=== PATIENT | female | born 1990 | race Caucasian/White ===

== ENCOUNTER 2019-06-08 10:30 | Inpatient (IN) | payer OTHER ==
[2019-06-08] MEDS ORDERED: ACETAMINOPHEN TAB 325 MG TAB PO STA (11:27)
--- NOTE | 2019-06-08 11:31 | ED ---
General Adult HPI - General Chief complaint: Skin/Abscess/Foreign Body Stated complaint: Cellulitis Time Seen by Provider: 06/08/19 11:15 Source: patient, family, RN notes reviewed Mode of arrival: wheelchair Limitations: physical limitation - History of Present Illness Initial comments: Patient is a very pleasant 28-year-old female presenting to the emergency department with family with concerns for redness of the abdomen. Onset of symptoms was 3 or 4 days ago. Patient has been having some discomfort in her family however patient denies this. No fevers at home. No history of similar symptoms previous. Patient does have history of surgical procedure approximately 10 years ago to help her with bowel movements. Patient does have openings through her umbilicus as well as right lower abdomen. Patient has not had a bowel movement in the past 3 days despite using fluid through her like she normally does. Family did try soapsuds yesterday without bowel movement. Patient does have difficulty threading history and family provides majority of history. Patient states she has been tolerating oral intake normally however family does not believe this is true - Related Data Home Medications Medication Instructions Recorded Confirmed Cholecalciferol [Vitamin D3 (25 1,000 unit PO DAILY 06/08/19 06/08/19 Mcg = 1000 Iu)] Cranberry Fruit Extract [Cranberry] 200 mg PO Q48H 06/08/19 06/08/19 Loratadine [Claritin] 10 mg PO DAILY 06/08/19 06/08/19 Oxybutynin Chloride [Ditropan XL] 5 mg PO DAILY 06/08/19 06/08/19 Sennosides [Senna] 8.6 mg PO Q48H 06/08/19 06/08/19 Allergies Allergy/AdvReac Type Severity Reaction Status Date / Time erythromycin base Allergy Anaphylaxis Verified 06/08/19 11:19 Latex, Natural Rubber Allergy Anaphylaxis Verified 06/08/19 11:19 loracarbef [From Lorabid] Allergy Rash/Hives Verified 06/08/19 11:19 Review of Systems ROS Statement: Those systems with pertinent positive or pertinent negative responses have been documented in the HPI. ROS Other: All systems not noted in ROS Statement are negative. Constitutional: Denies: fever, chills Eyes: Denies: eye pain ENT: Denies: ear pain Respiratory: Denies: dyspnea Cardiovascular: Denies: chest pain Endocrine: Denies: fatigue Gastrointestinal: Reports: as per HPI Genitourinary: Denies: dysuria Musculoskeletal: Denies: back pain Skin: Reports: as per HPI, rash Neurological: Denies: weakness Past Medical History Additional Past Medical History / Comment(s): Bor with spina bifida, RN POOL shunt, MRSA left knee History of Any Multi-Drug Resistant Organisms: MRSA Date of last positivie culture/infection: 2015 Additional Past Surgical History / Comment(s): left foot surgery, left leg surgery, Past Psychological History: Depression Smoking Status: Never smoker Past Alcohol Use History: None Reported Past Drug Use History: None Reported General Exam Limitations: physical limitation General appearance: alert, in no apparent distress, obese Head exam: Present: atraumatic Eye exam: Present: normal appearance, PERRL ENT exam: Present: normal oropharynx Neck exam: Present: normal inspection Respiratory exam: Present: normal lung sounds bilaterally Cardiovascular Exam: Present: tachycardia GI/Abdominal exam: Present: soft. Absent: distended, tenderness Extremities exam: Present: normal inspection Neurological exam: Present: alert Psychiatric exam: Present: normal affect, normal mood Skin exam: Present: erythema (Lower one third of abdomen with erythema consistent with cellulitis. This is across the majority of the lower abdomen.) Course Vital Signs 06/08/19 11:01 Temperature 99.8 F H Pulse Rate 131 H Respiratory 24 Rate Blood Pressure 111/64 O2 Sat by Pulse 98 Oximetry Medical Decision Making - Medical Decision Making Patient reevaluated and resting comfortably in bed. Patient remains tachycardic. Patient and family updated on results and plan. Case was discussed in detail with Dr. Lugo, covering for Dr. Huang, who will admit. Patient does meet criteria for sepsis diagnosed at 1336. Blood culture and lactic acid have been ordered. Fluid bolus has been ordered. IV antibiotics will be ordered. - Lab Data Result diagrams: 06/08/19 12:13 06/08/19 12:13 Lab Results 06/08/19 06/08/19 06/08/19 Range/Units 12:13 12:13 12:13 WBC 16.2 H (3.8-10.6) k/uL RBC 4.58 (3.80-5.40) m/uL Hgb 14.3 (11.4-16.0) gm/dL Hct 43.5 (34.0-46.0) % MCV 95.1 (80.0-100.0) fL MCH 31.3 (25.0-35.0) pg MCHC 32.9 (31.0-37.0) g/dL RDW 15.8 H (11.5-15.5) % Plt Count 246 (150-450) k/uL Neutrophils % 87 % Lymphocytes % 7 % Monocytes % 4 % Eosinophils % 0 % Basophils % 0 % Neutrophils # 14.0 H (1.3-7.7) k/uL Lymphocytes # 1.1 (1.0-4.8) k/uL Monocytes # 0.7 (0-1.0) k/uL Eosinophils # 0.0 (0-0.7) k/uL Basophils # 0.0 (0-0.2) k/uL PT (9.0-12.0) sec INR (<1.2) APTT (22.0-30.0) sec Sodium 142 (137-145) mmol/L Potassium 4.0 (3.5-5.1) mmol/L Chloride 108 H (98-107) mmol/L Carbon Dioxide 23 (22-30) mmol/L Anion Gap 11 mmol/L BUN 9 (7-17) mg/dL Creatinine 0.51 L (0.52-1.04) mg/dL Est GFR (CKD-EPI)AfAm >90 (>60 ml/min/1.73 sqM) Est GFR (CKD-EPI)NonAf >90 (>60 ml/min/1.73 sqM) Glucose 136 H (74-99) mg/dL Plasma Lactic Acid Simba 2.3 H* (0.7-2.0) mmol/L Calcium 9.8 (8.4-10.2) mg/dL Total Bilirubin 2.0 H (0.2-1.3) mg/dL AST 28 (14-36) U/L ALT 42 (9-52) U/L Alkaline Phosphatase 115 (38-126) U/L Total Protein 7.1 (6.3-8.2) g/dL Albumin 3.4 L (3.5-5.0) g/dL 06/08/19 Range/Units 12:13 WBC (3.8-10.6) k/uL RBC (3.80-5.40) m/uL Hgb (11.4-16.0) gm/dL Hct (34.0-46.0) % MCV (80.0-100.0) fL MCH (25.0-35.0) pg MCHC (31.0-37.0) g/dL RDW (11.5-15.5) % Plt Count (150-450) k/uL Neutrophils % % Lymphocytes % % Monocytes % % Eosinophils % % Basophils % % Neutrophils # (1.3-7.7) k/uL Lymphocytes # (1.0-4.8) k/uL Monocytes # (0-1.0) k/uL Eosinophils # (0-0.7) k/uL Basophils # (0-0.2) k/uL PT 11.4 (9.0-12.0) sec INR 1.1 (<1.2) APTT 23.0 (22.0-30.0) sec Sodium (137-145) mmol/L Potassium (3.5-5.1) mmol/L Chloride (98-107) mmol/L Carbon Dioxide (22-30) mmol/L Anion Gap mmol/L BUN (7-17) mg/dL Creatinine (0.52-1.04) mg/dL Est GFR (CKD-EPI)AfAm (>60 ml/min/1.73 sqM) Est GFR (CKD-EPI)NonAf (>60 ml/min/1.73 sqM) Glucose (74-99) mg/dL Plasma Lactic Acid Simba (0.7-2.0) mmol/L Calcium (8.4-10.2) mg/dL Total Bilirubin (0.2-1.3) mg/dL AST (14-36) U/L ALT (9-52) U/L Alkaline Phosphatase (38-126) U/L Total Protein (6.3-8.2) g/dL Albumin (3.5-5.0) g/dL - Radiology Data Radiology results: image reviewed (Abdominal x-rays show nonobstructive pattern. Chest x-ray is suboptimal study, possible atelectasis or atypical pneumonia.) Critical Care Time Critical Care Time: Yes Total Critical Care Time: 31 Disposition Clinical Impression: Severe sepsis Disposition: ADMITTED IP TO THIS HOSP Is patient prescribed a controlled substance at d/c from ED?: No Referrals: Lalo Huang MD [Primary Care Provider] - 1-2 days Decision Time: 13:36
[2019-06-08] MEDS: SODIUM CHLORIDE 0.9% 500 ML 500 ML IV SCH ×2 (12:06→13:43)
[2019-06-08 12:35] LABS: Basophils % (A) 0 %; Eosinophils % (A) 0 %; HCT 43.5 % (34.0-46.0); HGB 14.3 gm/dL (11.4-16.0); Lymphocytes # (A) 1.1 k/uL (1.0-4.8); Lymphocytes % (A) 7 %; MCH 31.3 pg (25.0-35.0); MCHC 32.9 g/dL (31.0-37.0); MCV 95.1 fL (80.0-100.0); Mean Platelet Volume 7.4; Monocytes # (A) 0.7 k/uL (0-1.0); Monocytes % (A) 4 %; Neutrophils % (A) 87 %; Platelet Count 246 k/uL (150-450); RBC 4.58 m/uL (3.80-5.40); RDW 15.8 % (11.5-15.5); WBC 16.2 k/uL (3.8-10.6)
[2019-06-08 12:42] LABS: INR 1.1 (<1.2); Prothrombin Time 11.4 sec (9.0-12.0)
[2019-06-08 12:45] LABS: ALT 42 U/L (9-52); AST 28 U/L (14-36); African American GFR (CKD) >90 (>60 ml/min/1.73 sqM); Albumin 3.4 g/dL (3.5-5.0); Alkaline Phosphatase 115 U/L (38-126); Anion Gap 11 mmol/L; Blood Urea Nitrogen 9 mg/dL (7-17); Calcium 9.8 mg/dL (8.4-10.2); Carbon Dioxide 23 mmol/L (22-30); Chloride 108 mmol/L (98-107); Glucose 136 mg/dL (74-99); Sodium 142 mmol/L (137-145); Total Protein 7.1 g/dL (6.3-8.2)
--- NOTE | 2019-06-08 13:13 | XR ---
EXAMINATION TYPE: XR chest 2V DATE OF EXAM: 06/08/2019 COMPARISON: 12/16/2008 HISTORY: Fever TECHNIQUE: Frontal and lateral views of the chest are obtained. FINDINGS: Hazy linear perihilar opacities are seen with slight obscuration the central retrocardiac airspace. Copious overlying soft tissues are seen. Cardia mediastinal silhouette is mildly enlarged a s seen on the prior. No sizable pneumothorax or pleural effusion. No acute osseous pathology. Shunt t ubing courses along the lateral right chest and neck. IMPRESSION: Exam is suboptimal secondary to patient body habitus. Central perihilar opacities could relate to atelectasis or atypical pneumonia.
--- NOTE | 2019-06-08 13:14 | XR ---
EXAMINATION TYPE: XR abdomen 1V DATE OF EXAM: 06/08/2019 1:01 PM CLINICAL HISTORY: Abdominal pain and known cellulitis TECHNIQUE: Single supine KUB image of the abdomen is obtained. COMPARISON: None. FINDINGS: Shunt tubing courses along the lateral right chest. Dysraphism is seen of the lumbosacral j unction as well as a reverse S-shaped scoliotic curvature of the thoracal lumbar spine. No dilated la rge or small bowel. Evaluation of pneumoperitoneum is limited given the supine view only however no g ross evidence of pneumoperitoneum is seen. 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 IMPRESSION: Nonobstructive bowel gas pattern.
[2019-06-08] MEDS ORDERED: SODIUM CHLORIDE 0.9% 1,000 ML IV STA ×2 (13:34)
[2019-06-08] MEDS ORDERED: ACETAMINOPHEN TAB 325 MG TAB PO PRN (13:37)
[2019-06-08] MEDS ORDERED: NALOXONE 0.4 MG/ML 1 ML VIAL IV PRN (13:37)
[2019-06-08] MEDS ORDERED: LEVOFLOXACIN 750MG-D5W PMX 750 MG in DEXTROSE/WATER 1 150ML.BAG IVPB STA (13:47)
[2019-06-08] MEDS ORDERED: LEVOFLOXACIN 250MG-D5W PMX 250 MG in DEXTROSE/WATER 1 50ML.BAG IVPB STA (13:47)
[2019-06-08] MEDS ORDERED: CLINDAMYCIN 600 MG in DEXTROSE 5% IN WATER 50 ML IVPB ONE ×2 (14:00)
[2019-06-08 14:34] LABS: Amorphous Sediment,Urine Few /hpf; Appearance,Urine Cloudy (Clear); Bacteria,Urine Many /hpf; Bilirubin,Urine 1+ (Negative); Blood,Urine Negative (Negative); Color,Urine Dark Yellow; Glucose,Urine (UA) 1+ (Negative); Ketones,Urine Negative (Negative); Leukocyte Esterase,Urine Moderate (Negative); Mucus,Urine Many /hpf; Nitrite,Urine Positive (Negative); Protein,Urine 1+ (Negative); Specific Gravity,Urine 1.019 (1.001-1.035); Squamous Epithelial Cell,Urine <1 /hpf (0-4); WBC,Urine 41 /hpf (0-5)
[2019-06-08] MEDS: SODIUM CHLORIDE 0.9% 1,000 ML IV SCH (16:31)
[2019-06-08 20:32] LABS: Glucose,Whole Blood 133 mg/dL (75-99)
[2019-06-08] MEDS ORDERED: SENNOSIDES 8.6 MG TAB PO SCH (21:00)
[2019-06-08] MEDS: CLINDAMYCIN 600 MG in DEXTROSE 5% IN WATER 50 ML IVPB SCH ×2 (21:05)
--- NOTE | 2019-06-08 23:59 | P.HPIM ---
History of Present Illness H&P Date: 06/08/19 Chief Complaint: Abdominal pain History of presenting complaint: This is a pleasant 28-year-old patient who follows Dr. Huang. 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 Patient is a limited historian. As per the history obtained from the ER and the nurse that patient has to openings in the abdominal wall. One unit of the umbilicus. There are patient makes urine. Also an opening in the right lower quadrant where a suction apparatus is attached to update the stool. Patient is brought in for some distention of the abdomen. Not had a bowel movement for about 3 days. Does not nausea vomiting. No obvious fever and chills. There was slight redness of the abdominal wall. Patient's family is currently not present. Admitting review of systems Difficult to obtain because of patient's mental retardation. 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 Lives some other. Does use a wheelchair to get about. Physical examination: VITAL SIGNS: 99.8, 131, 24, 111/64, 98% room air GENERAL: BMI 43.4, short, sitting up not in distress. EYES: Pupils equal. Conjunctiva normal. HEENT: External appearance of nose and ears normal, oral cavity grossly normal. NECK: JVD not raised; masses not palpable. HEART: First and second heart sounds are normal; no edema. LUNGS: Respiratory rate normal; clear to auscultation. ABDOMEN: Soft, distended, opening just below the umbilicus with the urine coming out. Another opening in the right lower quadrant. . PSYCH: Patient's able to answer some questions but difficult to followl. NEUROLOGICAL: Cranial nerves grossly intact; no facial asymmetry, weakness in both lower extremity.. LYMPHATICS: No lymph nodes palpable in the axilla and neck Investigations, reviewed in the clinical context: White count 16.2, hemoglobin 14.3, platelets 246, potassium 4.0, creatinine 0.51, lactic acid 2.3 EKG tracing personally reviewed by me shows nonspecific T-wave changes Abdominal x-ray shows nonspecific gas pattern Chest x-ray film poor penetration, personally reviewed by me UA positive for leukoesterase WBC Assessment: -This is a patient is at a prior abdominal procedure has a opening in the right lower quadrant 2 with a suction machine she does attached for his bowel movement. Has not had a bowel movement for 3 days. Abdomen slightly distended. Though minimal tenderness. 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 Family Eliseo in the apparatus for stool suctioning. Meantime will get a consultation with general surgery. We'll also add ceftriaxone and clindamycin.. Urine cultures pending. 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, MRSA left knee History of Any Multi-Drug Resistant Organisms: MRSA Date of last positivie culture/infection: 2015 MDRO Source:: wound Past Surgical History: Bladder Surgery, Bowel Resection Additional Past Surgical History / Comment(s): left foot surgery, left leg surgery, mitrofanoff procedure, osullivan Past Anesthesia/Blood Transfusion Reactions: No Reported Reaction Past Psychological History: Depression Smoking Status: Never smoker Past Alcohol Use History: None Reported Past Drug Use History: None Reported - Past Family History Mother Family Medical History: Diabetes Mellitus, Hyperlipidemia, Hypertension Father History Unknown: Yes Medications and Allergies Home Medications Medication Instructions Recorded Confirmed Type Cholecalciferol [Vitamin D3 (25 1,000 unit PO DAILY 06/08/19 06/08/19 History Mcg = 1000 Iu)] Cranberry Fruit Extract [Cranberry] 200 mg PO Q48H 06/08/19 06/08/19 History Loratadine [Claritin] 10 mg PO DAILY 06/08/19 06/08/19 History Oxybutynin Chloride [Ditropan XL] 5 mg PO DAILY 06/08/19 06/08/19 History Sennosides [Senna] 8.6 mg PO Q48H 06/08/19 06/08/19 History Allergies Allergy/AdvReac Type Severity Reaction Status Date / Time erythromycin base Allergy Anaphylaxis Verified 06/08/19 11:19 Latex, Natural Rubber Allergy Anaphylaxis Verified 06/08/19 11:19 loracarbef [From Lorabid] Allergy Rash/Hives Verified 06/08/19 11:19 Physical Exam Vitals: Vital Signs Temp Pulse Pulse Resp BP BP Pulse Ox 06/08/19 17:15 98.4 F 116 H 114/63 95 06/08/19 16:39 98.1 F 128 H 18 113/63 98 06/08/19 15:00 98.8 F 130 H 22 124/77 96 06/08/19 11:01 99.8 F H 131 H 24 111/64 98 Intake and Output 06/08/19 06/08/19 06/09/19 14:59 22:59 06:59 Intake Total 230 Balance 230 Intake: Intake, IV Titration 50 Amount Clindamycin 600 mg In 50 Dextrose 5% in Water 50 ml @ 50 mls/hr IVPB ONCE ONE Rx#:[id number] Oral 180 Other: Voiding Method Self-Catheterization Weight 97.522 kg Results CBC & Chem 7: 06/08/19 12:13 06/08/19 12:13 Labs: Abnormal Lab Results - Last 24 Hours (Table) 06/08/19 06/08/19 06/08/19 Range/Units 12:13 12:13 12:13 WBC 16.2 H (3.8-10.6) k/uL RDW 15.8 H (11.5-15.5) % Neutrophils # 14.0 H (1.3-7.7) k/uL Chloride 108 H (98-107) mmol/L Creatinine 0.51 L (0.52-1.04) mg/dL Glucose 136 H (74-99) mg/dL POC Glucose (mg/dL) (75-99) mg/dL Plasma Lactic Acid Simba 2.3 H* (0.7-2.0) mmol/L Total Bilirubin 2.0 H (0.2-1.3) mg/dL Albumin 3.4 L (3.5-5.0) g/dL Urine Appearance (Clear) Urine Protein (Negative) Urine Glucose (UA) (Negative) Urine Nitrite (Negative) Urine Bilirubin (Negative) Ur Leukocyte Esterase (Negative) Urine WBC (0-5) /hpf Amorphous Sediment (None) /hpf Urine Bacteria (None) /hpf Urine Mucus (None) /hpf 06/08/19 06/08/19 Range/Units 14:00 20:30 WBC (3.8-10.6) k/uL RDW (11.5-15.5) % Neutrophils # (1.3-7.7) k/uL Chloride (98-107) mmol/L Creatinine (0.52-1.04) mg/dL Glucose (74-99) mg/dL POC Glucose (mg/dL) 133 H (75-99) mg/dL Plasma Lactic Acid Simba (0.7-2.0) mmol/L Total Bilirubin (0.2-1.3) mg/dL Albumin (3.5-5.0) g/dL Urine Appearance Cloudy H (Clear) Urine Protein 1+ H (Negative) Urine Glucose (UA) 1+ H (Negative) Urine Nitrite Positive H (Negative) Urine Bilirubin 1+ H (Negative) Ur Leukocyte Esterase Moderate H (Negative) Urine WBC 41 H (0-5) /hpf Amorphous Sediment Few H (None) /hpf Urine Bacteria Many H (None) /hpf Urine Mucus Many H (None) /hpf Microbiology - Last 24 Hours (Table) 06/08/19 14:00 Urine Culture - Preliminary Urine,Voided Thrombosis Risk Factor Assmnt - Choose All That Apply Any of the Below Risk Factors Present?: No Other Risk Factors: No Thrombosis Risk Factor Assessment Level: Very Low Risk
[2019-06-09] MEDS: SODIUM CHLORIDE 0.9% 1,000 ML IV SCH ×3 (00:49→17:02)
[2019-06-09] MEDS: CLINDAMYCIN 600 MG in DEXTROSE 5% IN WATER 50 ML IVPB SCH ×6 (03:03→17:03)
[2019-06-09 03:10] VITALS: RESP 20
[2019-06-09 06:15] LABS: Glucose,Whole Blood 117 mg/dL (75-99)
[2019-06-09 06:46] LABS: Basophils % (A) 0 %; Eosinophils % (A) 0 %; HCT 36.5 % (34.0-46.0); HGB 11.6 gm/dL (11.4-16.0); Lymphocytes # (A) 1.3 k/uL (1.0-4.8); Lymphocytes % (A) 10 %; MCH 29.8 pg (25.0-35.0); MCHC 31.8 g/dL (31.0-37.0); MCV 93.7 fL (80.0-100.0); Mean Platelet Volume 7.1; Monocytes # (A) 0.5 k/uL (0-1.0); Monocytes % (A) 4 %; Neutrophils # (A) 10.8 k/uL (1.3-7.7); Neutrophils % (A) 83 %; Platelet Count 222 k/uL (150-450); RDW 14.6 % (11.5-15.5); WBC 13.1 k/uL (3.8-10.6)
[2019-06-09 06:56] LABS: ALT 36 U/L (9-52); AST 14 U/L (14-36); African American GFR (CKD) >90 (>60 ml/min/1.73 sqM); Albumin 2.6 g/dL (3.5-5.0); Alkaline Phosphatase 109 U/L (38-126); Anion Gap 8 mmol/L; Blood Urea Nitrogen 9 mg/dL (7-17); Calcium 8.6 mg/dL (8.4-10.2); Carbon Dioxide 19 mmol/L (22-30); Chloride 114 mmol/L (98-107); Glucose 120 mg/dL (74-99); Potassium 3.4 mmol/L (3.5-5.1); Sodium 141 mmol/L (137-145); Total Bilirubin 1.1 mg/dL (0.2-1.3); Total Protein 5.7 g/dL (6.3-8.2)
[2019-06-09] MEDS ORDERED: LORATADINE 10 MG TAB PO SCH (09:00)
[2019-06-09] MEDS ORDERED: ENOXAPARIN 40 MG/0.4 ML SYRINGE SQ SCH (09:00)
[2019-06-09] MEDS ORDERED: OXYBUTYNIN XL 5 MG TAB.ER.24 PO SCH (09:00)
[2019-06-09] MEDS ORDERED: CHOLECALCIFEROL 1,000 UNIT TAB PO SCH (09:00)
[2019-06-09] MEDS ORDERED: IOPAMIDOL-300 CONTRAST 30 ML VIAL (ORAL USE) PO PRN (09:23)
--- NOTE | 2019-06-09 11:26 | P.GSCN ---
History of Present Illness Consult date: 06/09/19 History of present illness: The patient is a 28-year-old female, myelomeningocele, wheelchair bound who was brought to the emergency room by her parents because of abdominal distention and pain and no bowel movement for 3 days. 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 She has a continent ostomy. The patient and the nursing staff have been unable to successfully catheterize her stoma. She normally does this with a 14-Hungarian coud-tip catheter at home. She is incontinent at this point in time. She has the classic posture and obesity. We see with wheelchair bound myelomeningocele patients. 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, MRSA left knee History of Any Multi-Drug Resistant Organisms: MRSA Year Discovered:: 2015 MDRO Source:: wound Past Surgical History: Bladder Surgery, Bowel Resection Additional Past Surgical History / Comment(s): left foot surgery, left leg surgery, mitrofanoff procedure, osullivan Past Anesthesia/Blood Transfusion Reactions: No Reported Reaction Past Psychological History: Depression Smoking Status: Never smoker Past Alcohol Use History: None Reported Past Drug Use History: None Reported - Past Family History Mother Family Medical History: Diabetes Mellitus, Hyperlipidemia, Hypertension Father History Unknown: Yes Medications and Allergies Home Medications Medication Instructions Recorded Confirmed Type Cholecalciferol [Vitamin D3 (25 1,000 unit PO DAILY 06/08/19 06/08/19 History Mcg = 1000 Iu)] Cranberry Fruit Extract [Cranberry] 200 mg PO Q48H 06/08/19 06/08/19 History Loratadine [Claritin] 10 mg PO DAILY 06/08/19 06/08/19 History Oxybutynin Chloride [Ditropan XL] 5 mg PO DAILY 06/08/19 06/08/19 History Sennosides [Senna] 8.6 mg PO Q48H 06/08/19 06/08/19 History Allergies Allergy/AdvReac Type Severity Reaction Status Date / Time erythromycin base Allergy Anaphylaxis Verified 06/08/19 11:19 Latex, Natural Rubber Allergy Anaphylaxis Verified 06/08/19 11:19 loracarbef [From Lorabid] Allergy Rash/Hives Verified 06/08/19 11:19 Surgical - Exam Vital Signs Temp Pulse Resp BP Pulse Ox 99.8 F H 131 H 24 111/64 98 06/08/19 11:01 06/08/19 11:01 06/08/19 11:01 06/08/19 11:01 06/08/19 11:01 - General well developed, well nourished, no distress - Eyes PERRL - ENT no hearing loss - Respiratory normal expansion, normal respiratory effort - Cardiovascular Rhythm: regular - Abdomen Abdomen is protuberant. There is a opening in the umbilicus where she drained urine. There is a right lower quadrant opening where she has bowel movement. There is erythema in the right lower quadrant. She is tender in the right lower quadrant. There is some abdominal distention. - Psychiatric oriented to person, oriented to place Results - Labs 06/09/19 06:12 06/09/19 06:12 Abnormal Lab Results - Last 24 Hours (Table) 06/08/19 06/08/19 06/08/19 Range/Units 12:13 12:13 12:13 WBC 16.2 H (3.8-10.6) k/uL RDW 15.8 H (11.5-15.5) % Neutrophils # 14.0 H (1.3-7.7) k/uL Potassium (3.5-5.1) mmol/L Chloride 108 H (98-107) mmol/L Carbon Dioxide (22-30) mmol/L Creatinine 0.51 L (0.52-1.04) mg/dL Glucose 136 H (74-99) mg/dL POC Glucose (mg/dL) (75-99) mg/dL Plasma Lactic Acid Simba 2.3 H* (0.7-2.0) mmol/L Total Bilirubin 2.0 H (0.2-1.3) mg/dL Total Protein (6.3-8.2) g/dL Albumin 3.4 L (3.5-5.0) g/dL Urine Appearance (Clear) Urine Protein (Negative) Urine Glucose (UA) (Negative) Urine Nitrite (Negative) Urine Bilirubin (Negative) Ur Leukocyte Esterase (Negative) Urine WBC (0-5) /hpf Amorphous Sediment (None) /hpf Urine Bacteria (None) /hpf Urine Mucus (None) /hpf 06/08/19 06/08/19 06/09/19 Range/Units 14:00 20:30 06:12 WBC 13.1 H (3.8-10.6) k/uL RDW (11.5-15.5) % Neutrophils # 10.8 H (1.3-7.7) k/uL Potassium (3.5-5.1) mmol/L Chloride (98-107) mmol/L Carbon Dioxide (22-30) mmol/L Creatinine (0.52-1.04) mg/dL Glucose (74-99) mg/dL POC Glucose (mg/dL) 133 H (75-99) mg/dL Plasma Lactic Acid Simba (0.7-2.0) mmol/L Total Bilirubin (0.2-1.3) mg/dL Total Protein (6.3-8.2) g/dL Albumin (3.5-5.0) g/dL Urine Appearance Cloudy H (Clear) Urine Protein 1+ H (Negative) Urine Glucose (UA) 1+ H (Negative) Urine Nitrite Positive H (Negative) Urine Bilirubin 1+ H (Negative) Ur Leukocyte Esterase Moderate H (Negative) Urine WBC 41 H (0-5) /hpf Amorphous Sediment Few H (None) /hpf Urine Bacteria Many H (None) /hpf Urine Mucus Many H (None) /hpf 06/09/19 06/09/19 Range/Units 06:12 06:12 WBC (3.8-10.6) k/uL RDW (11.5-15.5) % Neutrophils # (1.3-7.7) k/uL Potassium 3.4 L (3.5-5.1) mmol/L Chloride 114 H (98-107) mmol/L Carbon Dioxide 19 L (22-30) mmol/L Creatinine (0.52-1.04) mg/dL Glucose 120 H (74-99) mg/dL POC Glucose (mg/dL) 117 H (75-99) mg/dL Plasma Lactic Acid Simba (0.7-2.0) mmol/L Total Bilirubin (0.2-1.3) mg/dL Total Protein 5.7 L (6.3-8.2) g/dL Albumin 2.6 L (3.5-5.0) g/dL Urine Appearance (Clear) Urine Protein (Negative) Urine Glucose (UA) (Negative) Urine Nitrite (Negative) Urine Bilirubin (Negative) Ur Leukocyte Esterase (Negative) Urine WBC (0-5) /hpf Amorphous Sediment (None) /hpf Urine Bacteria (None) /hpf Urine Mucus (None) /hpf Microbiology - Last 24 Hours (Table) 06/08/19 14:00 Urine Culture - Preliminary Urine,Voided Diabetes panel 06/08/19 06/09/19 Range/Units 12:13 06:12 Sodium 142 141 (137-145) mmol/L Potassium 4.0 3.4 L (3.5-5.1) mmol/L Chloride 108 H 114 H (98-107) mmol/L Carbon Dioxide 23 19 L (22-30) mmol/L BUN 9 9 (7-17) mg/dL Creatinine 0.51 L 0.56 (0.52-1.04) mg/dL Glucose 136 H 120 H (74-99) mg/dL Calcium 9.8 8.6 (8.4-10.2) mg/dL AST 28 14 (14-36) U/L ALT 42 36 (9-52) U/L Alkaline Phosphatase 115 109 (38-126) U/L Total Protein 7.1 5.7 L (6.3-8.2) g/dL Albumin 3.4 L 2.6 L (3.5-5.0) g/dL Calcium panel 06/08/19 06/09/19 Range/Units 12:13 06:12 Calcium 9.8 8.6 (8.4-10.2) mg/dL Albumin 3.4 L 2.6 L (3.5-5.0) g/dL Pituitary panel 06/08/19 06/09/19 Range/Units 12:13 06:12 Sodium 142 141 (137-145) mmol/L Potassium 4.0 3.4 L (3.5-5.1) mmol/L Chloride 108 H 114 H (98-107) mmol/L Carbon Dioxide 23 19 L (22-30) mmol/L BUN 9 9 (7-17) mg/dL Creatinine 0.51 L 0.56 (0.52-1.04) mg/dL Glucose 136 H 120 H (74-99) mg/dL Calcium 9.8 8.6 (8.4-10.2) mg/dL Adrenal panel 06/08/19 06/09/19 Range/Units 12:13 06:12 Sodium 142 141 (137-145) mmol/L Potassium 4.0 3.4 L (3.5-5.1) mmol/L Chloride 108 H 114 H (98-107) mmol/L Carbon Dioxide 23 19 L (22-30) mmol/L BUN 9 9 (7-17) mg/dL Creatinine 0.51 L 0.56 (0.52-1.04) mg/dL Glucose 136 H 120 H (74-99) mg/dL Calcium 9.8 8.6 (8.4-10.2) mg/dL Total Bilirubin 2.0 H 1.1 (0.2-1.3) mg/dL AST 28 14 (14-36) U/L ALT 42 36 (9-52) U/L Alkaline Phosphatase 115 109 (38-126) U/L Total Protein 7.1 5.7 L (6.3-8.2) g/dL Albumin 3.4 L 2.6 L (3.5-5.0) g/dL Assessment and Plan Assessment: Impression: Constipation with abdominal distention. Inability to pass catheter into the neobladder. Myelomeningocele. recommendations: I will attempt to pass catheter. If further urologic or GI care is required she probably should be transferred to [facility] due to the complexity of her intra-abdominal surgery.
--- NOTE | 2019-06-09 11:28 | P.PCN ---
Date of Procedure: 06/09/19 Preoperative Diagnosis: Urine retention, neobladder catheterizable Postoperative Diagnosis: Same Procedure(s) Performed: Difficult catheterization Surgeon: Jaiden Kelsey Indications for Procedure: The patient has myelomeningocele. She has a neobladder draining out of her umbilicus due to reconstructive surgery when she was younger. She has myelomeningocele. The nursing staff has been unable to catheterize her. She is incontinent and I suspect this is overflow. The patient normally catheterizes herself with a 14-Ukrainian stiff coud-tip catheter. Description of Procedure: The patient is prepped and draped sterilely. I attempted to pass a 16-Ukrainian coud-tip catheter regular but on him able to do so. I then obtained the 14- Ukrainian stiff coud-tip catheter that the patient has. With some manipulation I'm able to pass a catheter into the neobladder and draining urine out. It is taped and secured to the skin and secured to a Paez temporarily. It is my understanding the patient is to be [facility] so I'll leave the catheter present.
[2019-06-09 12:05] VITALS: TEMP 98.4
--- NOTE | 2019-06-09 13:41 | P.GSCN ---
History of Present Illness Consult date: 06/09/19 Reason for Consult: abdominal pain, constipation Requesting physician: Francois Lugo History of present illness: CHIEF COMPLAINT: abdominal pain HISTORY OF PRESENT ILLNESS: 28 year old female who presented to the ER via her family for abdominal distention and inability to have a bowel movement. Patient has a history of spina bifida and underwent Osullivan procedure and Mitrofanoff procedure as a child performed at [facility]. Patient examined at the bedside. She denies abdominal pain, nausea, or vomiting. Spoke with patients mother over the phone who states they have been infusing fluid into patients right side of abdomen daily. Patient usually has a bowel movement daily per mother. She reports no bowel movement in 5 days. She also reports increased redness to abdomen. This morning nursing was unable to cath the patients urinary stoma. PAST MEDICAL HISTORY: See list. PAST SURGICAL HISTORY: See list. MEDICATIONS: See list. ALLERGIES: See list. SOCIAL HISTORY: No illicit drug use. REVIEW OF SYSTEMS: CONSTITUTIONAL: Denies fever or chills. HEENT: Denies blurred vision, vision changes, or eye pain. Denies hemoptysis ENDOCRINE: Denies heat or cold intolerance. CARDIOVASCULAR: Denies chest pain or pressure. RESPIRATORY: No shortness of breath. GASTROINTESTINAL: See HPI for pertinent findings NEURO: Denies history of seizures. PSYCH: No depression or suicidal ideation HEMATOLOGIC: Denies bleeding disorders. LYMPHATIC: The patient denies any lumps and bumps around the neck. GENITOURINARY: Denies any blood in urine or increased urinary frequency. MUSCULOSKELETAL: Denies myalgias. Denies joint swelling. Denies decreased range of motion beyond patients baseline. SKIN: Reports redness to abdomen. PHYSICAL EXAM: VITAL SIGNS: Reviewed GENERAL: Well-developed in no acute distress. HEENT: No sclera icterus. Extraocular movements grossly intact. Moist buccal mucosa. Head is atraumatic, normocephalic. Hears conversational speech. No nasal drainage. NECK: Supple without lymphadenopathy. CHEST: Non-labored respirations and equal bilateral excursions. CARDIOVASCULAR: Regular rate with regular rhythm. Palpable 2+ radial pulses. ABDOMEN: Soft. Mildly distended. Redness to lower abdomen. Mild tenderness with palpation to right lower quadrant. MUSCULOSKELETAL: No clubbing, cyanosis or edema. NEUROLOGIC: No focal or lateralizing signs. Cranial nerves II through XII grossly intact. PSYCH: Appropriate affect. Alert and oriented to person, place and time. SKIN: Well perfused. Good skin turgor. Redness to lower abdominal wall. LABORATORY DATA: WBC 13.1. Hemoglobin 11.6. Potassium 3.4. Lactic acid 1.5. IMAGING: Abdominal x-ray: Nonobstructive bowel gas pattern. ASSESSMENT: 1. Abdominal pain 2. Constipation, no bowel movement for 5 days 3. History of spina bifida 4. History of Osullivan procedure 5. History of mitrofanoff procedure 6. Abdominal wall cellulitis PLAN: Recommend transfer to a tertiary care center for further evaluation secondary to patient's history of Osullivan procedure and Mitrofanoff procedure Nurse practitioner note has been reviewed by physician. Signing provider agrees with the documented findings, assessment, and plan of care. 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 Year Discovered:: 2016 MDRO Source:: wound Past Surgical History: Bladder Surgery, Bowel Resection Additional Past Surgical History / Comment(s): left foot surgery, left leg surgery, mitrofanoff procedure, osullivan Past Anesthesia/Blood Transfusion Reactions: No Reported Reaction Past Psychological History: Depression Smoking Status: Never smoker Past Alcohol Use History: None Reported Past Drug Use History: None Reported - Past Family History Mother Family Medical History: Diabetes Mellitus, Hyperlipidemia, Hypertension Father History Unknown: Yes Medications and Allergies Home Medications Medication Instructions Recorded Confirmed Type Cholecalciferol [Vitamin D3 (25 1,000 unit PO DAILY 06/08/19 06/08/19 History Mcg = 1000 Iu)] Cranberry Fruit Extract [Cranberry] 200 mg PO Q48H 06/08/19 06/08/19 History Loratadine [Claritin] 10 mg PO DAILY 06/08/19 06/08/19 History Oxybutynin Chloride [Ditropan XL] 5 mg PO DAILY 06/08/19 06/08/19 History Sennosides [Senna] 8.6 mg PO Q48H 06/08/19 06/08/19 History Allergies Allergy/AdvReac Type Severity Reaction Status Date / Time erythromycin base Allergy Anaphylaxis Verified 06/08/19 11:19 Latex, Natural Rubber Allergy Anaphylaxis Verified 06/08/19 11:19 loracarbef [From Lorabid] Allergy Rash/Hives Verified 06/08/19 11:19 Surgical - Exam Vital Signs Temp Pulse Resp BP Pulse Ox 99.8 F H 131 H 24 111/64 98 06/08/19 11:01 06/08/19 11:01 06/08/19 11:01 06/08/19 11:01 06/08/19 11:01 Results - Labs 06/09/19 06:12 06/09/19 06:12 Abnormal Lab Results - Last 24 Hours (Table) 06/08/19 06/08/19 06/08/19 Range/Units 12:13 12:13 12:13 WBC 16.2 H (3.8-10.6) k/uL RDW 15.8 H (11.5-15.5) % Neutrophils # 14.0 H (1.3-7.7) k/uL Potassium (3.5-5.1) mmol/L Chloride 108 H (98-107) mmol/L Carbon Dioxide (22-30) mmol/L Creatinine 0.51 L (0.52-1.04) mg/dL Glucose 136 H (74-99) mg/dL POC Glucose (mg/dL) (75-99) mg/dL Plasma Lactic Acid Simba 2.3 H* (0.7-2.0) mmol/L Total Bilirubin 2.0 H (0.2-1.3) mg/dL Total Protein (6.3-8.2) g/dL Albumin 3.4 L (3.5-5.0) g/dL Urine Appearance (Clear) Urine Protein (Negative) Urine Glucose (UA) (Negative) Urine Nitrite (Negative) Urine Bilirubin (Negative) Ur Leukocyte Esterase (Negative) Urine WBC (0-5) /hpf Amorphous Sediment (None) /hpf Urine Bacteria (None) /hpf Urine Mucus (None) /hpf 06/08/19 06/08/19 06/09/19 Range/Units 14:00 20:30 06:12 WBC 13.1 H (3.8-10.6) k/uL RDW (11.5-15.5) % Neutrophils # 10.8 H (1.3-7.7) k/uL Potassium (3.5-5.1) mmol/L Chloride (98-107) mmol/L Carbon Dioxide (22-30) mmol/L Creatinine (0.52-1.04) mg/dL Glucose (74-99) mg/dL POC Glucose (mg/dL) 133 H (75-99) mg/dL Plasma Lactic Acid Simba (0.7-2.0) mmol/L Total Bilirubin (0.2-1.3) mg/dL Total Protein (6.3-8.2) g/dL Albumin (3.5-5.0) g/dL Urine Appearance Cloudy H (Clear) Urine Protein 1+ H (Negative) Urine Glucose (UA) 1+ H (Negative) Urine Nitrite Positive H (Negative) Urine Bilirubin 1+ H (Negative) Ur Leukocyte Esterase Moderate H (Negative) Urine WBC 41 H (0-5) /hpf Amorphous Sediment Few H (None) /hpf Urine Bacteria Many H (None) /hpf Urine Mucus Many H (None) /hpf 06/09/19 06/09/19 Range/Units 06:12 06:12 WBC (3.8-10.6) k/uL RDW (11.5-15.5) % Neutrophils # (1.3-7.7) k/uL Potassium 3.4 L (3.5-5.1) mmol/L Chloride 114 H (98-107) mmol/L Carbon Dioxide 19 L (22-30) mmol/L Creatinine (0.52-1.04) mg/dL Glucose 120 H (74-99) mg/dL POC Glucose (mg/dL) 117 H (75-99) mg/dL Plasma Lactic Acid Simba (0.7-2.0) mmol/L Total Bilirubin (0.2-1.3) mg/dL Total Protein 5.7 L (6.3-8.2) g/dL Albumin 2.6 L (3.5-5.0) g/dL Urine Appearance (Clear) Urine Protein (Negative) Urine Glucose (UA) (Negative) Urine Nitrite (Negative) Urine Bilirubin (Negative) Ur Leukocyte Esterase (Negative) Urine WBC (0-5) /hpf Amorphous Sediment (None) /hpf Urine Bacteria (None) /hpf Urine Mucus (None) /hpf Microbiology - Last 24 Hours (Table) 06/08/19 14:00 Urine Culture - Preliminary Urine,Voided Diabetes panel 06/08/19 06/09/19 Range/Units 12:13 06:12 Sodium 142 141 (137-145) mmol/L Potassium 4.0 3.4 L (3.5-5.1) mmol/L Chloride 108 H 114 H (98-107) mmol/L Carbon Dioxide 23 19 L (22-30) mmol/L BUN 9 9 (7-17) mg/dL Creatinine 0.51 L 0.56 (0.52-1.04) mg/dL Glucose 136 H 120 H (74-99) mg/dL Calcium 9.8 8.6 (8.4-10.2) mg/dL AST 28 14 (14-36) U/L ALT 42 36 (9-52) U/L Alkaline Phosphatase 115 109 (38-126) U/L Total Protein 7.1 5.7 L (6.3-8.2) g/dL Albumin 3.4 L 2.6 L (3.5-5.0) g/dL Calcium panel 06/08/19 06/09/19 Range/Units 12:13 06:12 Calcium 9.8 8.6 (8.4-10.2) mg/dL Albumin 3.4 L 2.6 L (3.5-5.0) g/dL Pituitary panel 06/08/19 06/09/19 Range/Units 12:13 06:12 Sodium 142 141 (137-145) mmol/L Potassium 4.0 3.4 L (3.5-5.1) mmol/L Chloride 108 H 114 H (98-107) mmol/L Carbon Dioxide 23 19 L (22-30) mmol/L BUN 9 9 (7-17) mg/dL Creatinine 0.51 L 0.56 (0.52-1.04) mg/dL Glucose 136 H 120 H (74-99) mg/dL Calcium 9.8 8.6 (8.4-10.2) mg/dL Adrenal panel 06/08/19 06/09/19 Range/Units 12:13 06:12 Sodium 142 141 (137-145) mmol/L Potassium 4.0 3.4 L (3.5-5.1) mmol/L Chloride 108 H 114 H (98-107) mmol/L Carbon Dioxide 23 19 L (22-30) mmol/L BUN 9 9 (7-17) mg/dL Creatinine 0.51 L 0.56 (0.52-1.04) mg/dL Glucose 136 H 120 H (74-99) mg/dL Calcium 9.8 8.6 (8.4-10.2) mg/dL Total Bilirubin 2.0 H 1.1 (0.2-1.3) mg/dL AST 28 14 (14-36) U/L ALT 42 36 (9-52) U/L Alkaline Phosphatase 115 109 (38-126) U/L Total Protein 7.1 5.7 L (6.3-8.2) g/dL Albumin 3.4 L 2.6 L (3.5-5.0) g/dL
--- NOTE | 2019-06-09 14:01 | CDI ---
Documentation Clarification Form Date: 06/09/2019 1:33:35 PM From: Lupe Floyd RN, CCDS Admit Date: 06/08/2019 1:37:00 PM Patient Name: Dedra Pardo Visit Number: [id number] Discharge Date: ATTENTION: The Clinical Documentation Specialists (CDI) and [facility] Coding Staff appreciate your assistance in clarifying documentation. Please respond to the clarification below the line at the bottom and electronically sign. The CDI & [facility] Coding staff will review the response and follow-up if needed. Please note: Queries are made part of the Legal Health Record. If you have any questions, please contact the author of this message via ITS. Dr. Francois Lugo The patient presented with concerns for redness of the abdomen. History/Risk Factors: Bor with spina bifida, MANAGER QUANTITATIVE shunt, MRSA, Myelomeningocele Clinical Indicators: 28-year-old female who present with erythema (lower one third of abdomen consistent with cellulitis per ED evaluation: Severe sepsis WBC 16.2 Lactic acid: 2.3 UA: Nitrite -Positive, Leukocyte Esterase-Moderate, Urine WBC 41, Urine Bacteria- Many Vitals signs on admission: 111/64 131 24 99.8 98 % Abdominal x-ray show nonobstructive pattern. Chest x-ray is suboptimal study, possible atelectasis or atypical pneumonia. 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 due to reconstructive surgery when she was younger Treatment: Antibiotics: Rocephin IV IV Bolus: Clindamycin IV IV Fluid @ 125 Monitor CBC, In your professional opinion, please clarify if these findings signify one of the following conditions, whether the condition is POA, and cause, if known: Condition Sepsis ruled out Sepsis POA ( due to, please specify) Other, please specify Unable to determine Identify the (suspected) organism Link or clarify if there is associated (due to/with): SIRS Criteria (2 or more of the following may indicate SIRS): -Temperature < 96.8F (36C) or > 101.0F (38.3C) -Heart Rate > 90 bpm -Respiratory Rate > 20 breaths/min or PaCO2 < 32 mmHg -White Blood Cell Count > 12,000 or < 4,000 cells/mm3 or > 10% bands -Lactate >2.0 mmol/L (>4.0 is equivalent to septic shock) (Last Revision: February 2018) sepsis from UTI from cystitis, POA MTDD
--- NOTE | 2019-06-09 17:13 | P.DS ---
Providers Date of admission: 06/08/19 13:37 Expected date of discharge: 06/09/19 Attending physician: Francois Lugo Consults: 06/08/19 23:50 Consult Physician Routine Consulting Provider: Lily Umana Consult Reason/Comments: Abdominal pain, constipation Do you want consulting provider notified?: Yes 06/09/19 09:44 Consult Physician Routine Consulting Provider: Eliel oYussef Consult Reason/Comments: uti, hx of mitrofanoff surgery unable to place kearns cath Do you want consulting provider notified?: Yes Primary care physician: [facility] Course: Hospital course: This is a pleasant 28-year-old patient who follows Dr. Huang. 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 Patient is a limited historian. Patient about [facility] years ago at [facility] had diverging surgeries so that patient could urinate and have bowel movements and manage on her own. She has a urinary stoma below the umbilicus that drains. She also has a stoma for a stool in the right lower quadrant. She puts water in that every day and attaches it to pump and stool comes out. Patient had a bowel movement for 5 days. Patient also had some cellulitis. Patient also found to have a UTI with sepsis when she came in. That has been no nausea vomiting. Patient seen by Dr. Orellana from general surgery Dr. Palacio from urology. They persisted that patient should be moved to a higher level of care. Because of lack of colorectal surgery here. Patient's hadMalone procedure andMitronoff procedure in the past. This hospital stay patient's treated IV clindamycin and IV ceftriaxone. And given IV fluids. Today I discussed the patient's mother. Discussed with Dr. Orellana. The patient. Thank you able to transfer. Patient does see a urologist out of the [place] system. Apparently Connie. I spoke to the internal medicine accepting physician at [place]'s Dr. Ho, who accepted the case. Also discussed with the nurse and the human services case manager. Discussion and discharge planning more than 35 minutes. Physical examination: VITAL SIGNS: 98.4, 113, 100 x 6 3, 97% room air GENERAL: BMI 43.4, short, sitting up comfortable. EYES: Pupils equal. Conjunctiva normal. HEENT: External appearance of nose and ears normal, oral cavity grossly normal. NECK: JVD not raised; masses not palpable. HEART: First and second heart sounds are normal; no edema. LUNGS: Respiratory rate normal; clear to auscultation. ABDOMEN: Soft, distended, nontender opening just below the umbilicus with the urine coming out. Another stoma in the right lower quadrant. Lower abdominal wall redness. PSYCH: Patient's able to answer some questions but difficult to follow, felice etimes l. NEUROLOGICAL: Cranial nerves grossly intact; no facial asymmetry, weakness in both lower extremity.. LYMPHATICS: No lymph nodes palpable in the axilla and neck Investigations, reviewed in the clinical context: White count 13.1 potassium 3.4 creatinine 0.56 lactic acid came down from 2.3 down to 1.5 EKG tracing personally reviewed by me shows nonspecific T-wave changes Abdominal x-ray shows nonspecific gas pattern Chest x-ray film poor penetration, personally reviewed by me UA positive for leukoesterase WBC Assessment: -Acute UTI causing sepsis, POA -Lower Abdominal wall cellulitis, POA -This is a patient is at a prior abdominal procedure has a opening in the right lower quadrant 2 with a suction machine she does attached for his bowel movement. Has not had a bowel movement for 5 days. Abdomen slightly distended. Though minimal tenderness. 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 Accepting physician from internal medicine. patient require requires colorectal surgeon for further workup Patient Condition at Discharge: Undetermined Plan - Discharge Summary Discharge Rx Participant: No New Discharge Prescriptions: No Action Oxybutynin Chloride [Ditropan XL] 5 mg PO DAILY Loratadine [Claritin] 10 mg PO DAILY Cholecalciferol [Vitamin D3 (25 Mcg = 1000 Iu)] 1,000 unit PO DAILY Sennosides [Senna] 8.6 mg PO Q48H Cranberry Fruit Extract [Cranberry] 200 mg PO Q48H Discharge Medication List Cholecalciferol [Vitamin D3 (25 Mcg = 1000 Iu)] 1,000 unit PO DAILY 06/08/19 [History] Cranberry Fruit Extract [Cranberry] 200 mg PO Q48H 06/08/19 [History] Loratadine [Claritin] 10 mg PO DAILY 06/08/19 [History] Oxybutynin Chloride [Ditropan XL] 5 mg PO DAILY 06/08/19 [History] Sennosides [Senna] 8.6 mg PO Q48H 06/08/19 [History] Follow up Appointment(s)/Referral(s): Lalo Huang MD [Primary Care Provider] - 1-2 days Discharge/Stand Alone Forms: Work/School Release
[2019-06-09 18:01] VITALS: BP 118/72; PULSE 122
== END 2019-06-09 19:30 | disposition short-term general hospital (02) | DRG 872 ==
LOC: EC 10:30 → EEVIPCON 10:30 → 3SCARD 13:37
PROVIDERS: ADMIT Hospitalist; ATTEND Hospitalist
PROC: 0T9B70Z Drainage of Bladder with Drainage Device, Via Natural or Artificial Opening (ICD-10-PCS; principal; 2019-06-09)
DX: A41.9 Sepsis, unspecified organism (principal); G82.20 Paraplegia, unspecified; L03.311 Cellulitis of abdominal wall; E66.9 Obesity, unspecified; Z68.33 Body mass index [BMI] 33.0-33.9, adult; F32.9 Major depressive disorder, single episode, unspecified; F79 Unspecified intellectual disabilities; G47.33 Obstructive sleep apnea (adult) (pediatric); Z99.89 Dependence on other enabling machines and devices; K59.00 Constipation, unspecified; N30.90 Cystitis, unspecified without hematuria; Q05.9 Spina bifida, unspecified; R32 Unspecified urinary incontinence; R65.20 Severe sepsis without septic shock; Z82.49 Family history of ischemic heart disease and other diseases of the circulatory system; Z83.3 Family history of diabetes mellitus; Z98.2 Presence of cerebrospinal fluid drainage device; Z99.3 Dependence on wheelchair; Z79.899 Other long term (current) drug therapy; Z88.8 Allergy status to other drugs, medicaments and biological substances; Z88.1 Allergy status to other antibiotic agents; Z91.040 Latex allergy status; Z86.14 Personal history of Methicillin resistant Staphylococcus aureus infection
CPT/HCPCS: 36415; 71046; 74018; 80053; 81001; 83605; 85025; 85610; 85730; 87040; 87077; 87086; 87186; 93005; 94660; 96365; 96367; 99285

== ENCOUNTER 2019-08-24 14:15 | Emergency (ER) | payer OTHER ==
[2019-08-24 14:20] VITALS: RESP 18
[2019-08-24] MEDS ORDERED: ACETAMINOPHEN TAB 325 MG TAB PO STA (14:48)
[2019-08-24] MEDS ORDERED: LEVOFLOXACIN 750MG-D5W PMX 750 MG in DEXTROSE/WATER 1 150ML.BAG IVPB STA (14:59)
[2019-08-24] MEDS ORDERED: SODIUM CHLORIDE 0.9% 1,000 ML IV SCH (15:00)
[2019-08-24] MEDS ORDERED: VANCOMYCIN IV PER PHARMACY 1 EACH MISC MISCELLANE PRN (15:00)
--- NOTE | 2019-08-24 15:00 | ED ---
Fever HPI - General Chief Complaint: Fever Stated Complaint: High heart rate & fever Time Seen by Provider: 08/24/19 14:48 Source: patient Mode of arrival: wheelchair Limitations: no limitations - History of Present Illness Initial Comments: 28-year-old female with history of spina bifida, DAY [employer] shunt, osullivan procedure and a mitrofenoff procedure presenting to the ER for cc of fever, elevated heart rate and RLQ abdominal redness, warmth x 1 day. Mother states that in the beginning of June patient had an abdominal cellulitis near the entrance of her osullivan procedure. Patient mother states that at that time surgical debridement of performed at [facility], and patient was placed on antibitoics. Mother states patient has been off of any antibiotics for the past month. She states there was some delayed wound healing otherwise no redness near the site of surgery. Mother states that last night she noticed warmth and redness of the surgical incision with some drainage. Today she states patient developed a fever and elevated heart rate. Mother states patient has been septic previously and she was concerned this was developing-thus presented to the ER for further evaluation. Last BM 1 day ago. Patient states that the area that is red is tender to touch. Denies headache, neck stiffnes, visual changes, cough. - Related Data Home Medications Medication Instructions Recorded Confirmed Cholecalciferol [Vitamin D3 (25 1,000 unit PO DAILY 06/08/19 08/24/19 Mcg = 1000 Iu)] Cranberry Fruit Extract [Cranberry] 200 mg PO DAILY 06/08/19 08/24/19 Loratadine [Claritin] 10 mg PO DAILY 06/08/19 08/24/19 Bisacodyl [Dulcolax] 5 mg PO DAILY 08/24/19 08/24/19 Escitalopram [Lexapro] 10 mg PO DAILY 08/24/19 08/24/19 Oxybutynin Chloride [Oxybutynin 10 mg PO DAILY 08/24/19 08/24/19 Chloride ER] Allergies Allergy/AdvReac Type Severity Reaction Status Date / Time erythromycin base Allergy Anaphylaxis Verified 08/24/19 15:50 Latex, Natural Rubber Allergy Anaphylaxis Verified 08/24/19 15:50 loracarbef [From Lorabid] Allergy Rash/Hives Verified 08/24/19 15:50 Review of Systems ROS Statement: Those systems with pertinent positive or pertinent negative responses have been documented in the HPI. ROS Other: All systems not noted in ROS Statement are negative. Past Medical History Past Medical History: Musculoskeletal Disorder, Neurologic Disorder, Sleep Apnea/CPAP/BIPAP Additional Past Medical History / Comment(s): Born with spina bifida, [employer] shunt, MRSA left knee History of Any Multi-Drug Resistant Organisms: MRSA Date of last positivie culture/infection: 2015 MDRO Source:: wound Past Surgical History: Bladder Surgery, Bowel Resection Additional Past Surgical History / Comment(s): left foot surgery, left leg surgery, mitrofanoff procedure, osullivan Past Anesthesia/Blood Transfusion Reactions: No Reported Reaction Past Psychological History: Depression Smoking Status: Never smoker Past Alcohol Use History: None Reported Past Drug Use History: None Reported - Past Family History Mother Family Medical History: Diabetes Mellitus, Hyperlipidemia, Hypertension Father History Unknown: Yes General Exam - General Exam Comments Initial Comments: General: The patient is awake and alert, in no distress, and does not appear acutely ill. Eye: + 3mm pupils are equal, round and reactive to light, extra-ocular movements are intact. No nystagmus. There is normal conjunctiva bilaterally. No signs of icterus. Ears, nose, mouth and throat: There are moist mucous membranes and no oral lesions. Neck: The neck is supple, there is no tenderness or JVD. Cardiovascular: There is a regular rate and rhythm. No murmur, rub or gallop is appreciated. Respiratory: Lungs are clear to auscultation, respirations are non-labored, breath sounds are equal. No wheezes, stridor, rales, or rhonchi. Gastrointestinal: Soft, non-distended,tender at the site of redness to palpation of the abdomen without masses or organomegaly noted. There is no rebound or guarding present. Musculoskeletal: Normal ROM, no tenderness. Strength 5/5. Sensation intact. Radial pulses equal bilaterally 2+. Neurological: A&O x 3. CN II-XII intact grossly, There are no obvious motor or sensory deficits. Coordination appears grossly intact. Speech is normal. Skin: Skin is warm and dry and no rashes. Horizontal surgical incision on the lower abdomen below the umbilicus. There is slight dehiscence at the distal wound edges. No gross drainage. Patient does have redness no blistering. Tender to palpation. Diffusely around the incision site. Spreading distally. Psychiatric: Cooperative, pleasant affect Limitations: no limitations Course Vital Signs 08/24/19 08/24/19 08/24/19 14:17 15:30 16:00 Temperature 101.2 F H Pulse Rate 148 H Respiratory 18 Rate Blood Pressure 111/68 128/74 108/73 O2 Sat by Pulse 92 L 95 93 L Oximetry 08/24/19 08/24/19 08/24/19 16:30 17:00 18:15 Temperature 99.5 F Pulse Rate 135 H 140 H Respiratory 18 18 Rate Blood Pressure 125/85 112/82 114/75 O2 Sat by Pulse 94 L 96 94 L Oximetry Medical Decision Making - Medical Decision Making 28-year-old female presenting for possible infection of the abdomen. Patient recently hospitalized for urosepsis and cellulitis in May. Patient transferred to [facility] for escalation of care, given urological, colorectal history. Today patient was found to have cellulitis of the right aspect of abdomen with gas. Patient started on clindamycin and ceftriaxone after this finding in addition the patient received Levaquin and vancomycin per sepsis protocol. Patient was given a total of 2 L of fluid maintenance at 130ml an hour. She was also found to have a urinary tract infection which may be compounding cause of severe sepsis. At this time given patient's previous history and previous transfer for escalation of care that it is best for patient be transferred to [facility], the transfer was accepted by the emergency physician Dr. Serra. Discussed laboratory studies patient's vital signs clinical appearance, as well as patient's past medical and surgical history. She is accepting of transfer, no further orders. Antibiotics will be hanging during transit. Patient's blood pressure has remained stable throughout her visit in the emergency department today. Mother is agreeable to transfer. Discussed case with her provider Dr. Dunlap who is agreeable with transfer of patient and care plan. - Lab Data Result diagrams: 08/24/19 15:28 08/24/19 15:28 Lab Results 08/24/19 08/24/19 08/24/19 Range/Units 15:28 15:28 15:28 WBC 31.8 H (3.8-10.6) k/uL RBC 4.27 (3.80-5.40) m/uL Hgb 12.6 (11.4-16.0) gm/dL Hct 40.0 (34.0-46.0) % MCV 93.7 (80.0-100.0) fL MCH 29.6 (25.0-35.0) pg MCHC 31.6 (31.0-37.0) g/dL RDW 17.0 H (11.5-15.5) % Plt Count 300 (150-450) k/uL Neutrophils % 92 % Lymphocytes % 2 % Monocytes % 4 % Eosinophils % 0 % Basophils % 0 % Neutrophils # 29.2 H (1.3-7.7) k/uL Lymphocytes # 0.5 L (1.0-4.8) k/uL Monocytes # 1.4 H (0-1.0) k/uL Eosinophils # 0.1 (0-0.7) k/uL Basophils # 0.1 (0-0.2) k/uL Anisocytosis Slight PT (9.0-12.0) sec INR (<1.2) APTT (22.0-30.0) sec Sodium 142 (137-145) mmol/L Potassium 3.6 (3.5-5.1) mmol/L Chloride 110 H (98-107) mmol/L Carbon Dioxide 18 L (22-30) mmol/L Anion Gap 14 mmol/L BUN 12 (7-17) mg/dL Creatinine 0.65 (0.52-1.04) mg/dL Est GFR (CKD-EPI)AfAm >90 (>60 ml/min/1.73 sqM) Est GFR (CKD-EPI)NonAf >90 (>60 ml/min/1.73 sqM) Glucose 158 H (74-99) mg/dL Lactic Ac Sepsis Rflx Plasma Lactic Acid [place] 3.4 H* (0.7-2.0) mmol/L Calcium 9.8 (8.4-10.2) mg/dL Total Bilirubin 1.3 (0.2-1.3) mg/dL AST 26 (14-36) U/L ALT 29 (9-52) U/L Alkaline Phosphatase 86 (38-126) U/L Total Protein 7.9 (6.3-8.2) g/dL Albumin 3.9 (3.5-5.0) g/dL Urine Color Urine Appearance (Clear) Urine pH (5.0-8.0) Ur Specific [place] (1.001-1.035) Urine Protein (Negative) Urine Glucose (UA) (Negative) Urine Ketones (Negative) Urine Blood (Negative) Urine Nitrite (Negative) Urine Bilirubin (Negative) Urine Urobilinogen (<2.0) mg/dL Ur Leukocyte Esterase (Negative) Urine RBC (0-5) /hpf Urine WBC (0-5) /hpf Ur Squamous Epith Cells (0-4) /hpf Urine Bacteria (None) /hpf Urine Mucus (None) /hpf Influenza Type A RNA (Not Detectd) Influenza Type B (PCR) (Not Detectd) 08/24/19 08/24/19 08/24/19 Range/Units 15:28 15:28 15:28 WBC (3.8-10.6) k/uL RBC (3.80-5.40) m/uL Hgb (11.4-16.0) gm/dL Hct (34.0-46.0) % MCV (80.0-100.0) fL MCH (25.0-35.0) pg MCHC (31.0-37.0) g/dL RDW (11.5-15.5) % Plt Count (150-450) k/uL Neutrophils % % Lymphocytes % % Monocytes % % Eosinophils % % Basophils % % Neutrophils # (1.3-7.7) k/uL Lymphocytes # (1.0-4.8) k/uL Monocytes # (0-1.0) k/uL Eosinophils # (0-0.7) k/uL Basophils # (0-0.2) k/uL Anisocytosis PT 10.8 (9.0-12.0) sec INR 1.0 (<1.2) APTT 21.9 L (22.0-30.0) sec Sodium (137-145) mmol/L Potassium (3.5-5.1) mmol/L Chloride (98-107) mmol/L Carbon Dioxide (22-30) mmol/L Anion Gap mmol/L BUN (7-17) mg/dL Creatinine (0.52-1.04) mg/dL Est GFR (CKD-EPI)AfAm (>60 ml/min/1.73 sqM) Est GFR (CKD-EPI)NonAf (>60 ml/min/1.73 sqM) Glucose (74-99) mg/dL Lactic Ac Sepsis Rflx Plasma Lactic Acid [place] (0.7-2.0) mmol/L Calcium (8.4-10.2) mg/dL Total Bilirubin (0.2-1.3) mg/dL AST (14-36) U/L ALT (9-52) U/L Alkaline Phosphatase (38-126) U/L Total Protein (6.3-8.2) g/dL Albumin (3.5-5.0) g/dL Urine Color Yellow Urine Appearance Cloudy H (Clear) Urine pH 6.5 (5.0-8.0) Ur Specific [place] 1.017 (1.001-1.035) Urine Protein Trace H (Negative) Urine Glucose (UA) Negative (Negative) Urine Ketones Negative (Negative) Urine Blood Small H (Negative) Urine Nitrite Positive H (Negative) Urine Bilirubin Negative (Negative) Urine Urobilinogen <2.0 (<2.0) mg/dL Ur Leukocyte Esterase Moderate H (Negative) Urine RBC 10 H (0-5) /hpf Urine WBC 17 H (0-5) /hpf Ur Squamous Epith Cells 1 (0-4) /hpf Urine Bacteria Few H (None) /hpf Urine Mucus Occasional H (None) /hpf Influenza Type A RNA Not Detected (Not Detectd) Influenza Type B (PCR) Not Detected (Not Detectd) 08/24/19 Range/Units 16:00 WBC (3.8-10.6) k/uL RBC (3.80-5.40) m/uL Hgb (11.4-16.0) gm/dL Hct (34.0-46.0) % MCV (80.0-100.0) fL MCH (25.0-35.0) pg MCHC (31.0-37.0) g/dL RDW (11.5-15.5) % Plt Count (150-450) k/uL Neutrophils % % Lymphocytes % % Monocytes % % Eosinophils % % Basophils % % Neutrophils # (1.3-7.7) k/uL Lymphocytes # (1.0-4.8) k/uL Monocytes # (0-1.0) k/uL Eosinophils # (0-0.7) k/uL Basophils # (0-0.2) k/uL Anisocytosis PT (9.0-12.0) sec INR (<1.2) APTT (22.0-30.0) sec Sodium (137-145) mmol/L Potassium (3.5-5.1) mmol/L Chloride (98-107) mmol/L Carbon Dioxide (22-30) mmol/L Anion Gap mmol/L BUN (7-17) mg/dL Creatinine (0.52-1.04) mg/dL Est GFR (CKD-EPI)AfAm (>60 ml/min/1.73 sqM) Est GFR (CKD-EPI)NonAf (>60 ml/min/1.73 sqM) Glucose (74-99) mg/dL Lactic Ac Sepsis Rflx Y Plasma Lactic Acid [place] (0.7-2.0) mmol/L Calcium (8.4-10.2) mg/dL Total Bilirubin (0.2-1.3) mg/dL AST (14-36) U/L ALT (9-52) U/L Alkaline Phosphatase (38-126) U/L Total Protein (6.3-8.2) g/dL Albumin (3.5-5.0) g/dL Urine Color Urine Appearance (Clear) Urine pH (5.0-8.0) Ur Specific [place] (1.001-1.035) Urine Protein (Negative) Urine Glucose (UA) (Negative) Urine Ketones (Negative) Urine Blood (Negative) Urine Nitrite (Negative) Urine Bilirubin (Negative) Urine Urobilinogen (<2.0) mg/dL Ur Leukocyte Esterase (Negative) Urine RBC (0-5) /hpf Urine WBC (0-5) /hpf Ur Squamous Epith Cells (0-4) /hpf Urine Bacteria (None) /hpf Urine Mucus (None) /hpf Influenza Type A RNA (Not Detectd) Influenza Type B (PCR) (Not Detectd) - EKG Data EKG Comments: Ventricular rate 139 beats minute, NE interval 112 ms, QRS episcopalian 76 nose evidence for QT/QTC 306/465 ms. This is sinus tachycardia. Nonspecific T-wave abnormality. No ST elevation or depression. Disposition Clinical Impression: Severe sepsis, UTI (urinary tract infection), Cellulitis, Fever, Leukocytosis Disposition: TRANSFER TO PSYCH HOSP/UNIT Condition: Serious Is patient prescribed a controlled substance at d/c from ED?: No Referrals: Lalo Huang MD [Primary Care Provider] - 1-2 days Time of Disposition: 19:29 - Out of Hospital Transfer - Req. Specs Out of Hospital Transfer - Requested Specifics: Other Emergency Center ([facility], Dr. Serra)
[2019-08-24] MEDS ORDERED: VANCOMYCIN 1,750 MG in SODIUM CHLORIDE 0.9% 500 ML 500 ML IVPB STA (15:04)
[2019-08-24] MEDS: SODIUM CHLORIDE 0.9% 500 ML 500 ML IV SCH (15:31)
[2019-08-24 15:48] LABS: Appearance,Urine Cloudy (Clear); Bacteria,Urine Few /hpf; Bilirubin,Urine Negative (Negative); Blood,Urine Small (Negative); Color,Urine Yellow; Glucose,Urine (UA) Negative (Negative); Ketones,Urine Negative (Negative); Leukocyte Esterase,Urine Moderate (Negative); Mucus,Urine Occasional /hpf; Nitrite,Urine Positive (Negative); PH, Urine 6.5 (5.0-8.0); Protein,Urine Trace (Negative); RBC,Urine 10 /hpf (0-5); Specific Gravity,Urine 1.017 (1.001-1.035); Squamous Epithelial Cell,Urine 1 /hpf (0-4); Urobilinogen,Urine <2.0 mg/dL (<2.0); WBC,Urine 17 /hpf (0-5)
[2019-08-24 15:51] LABS: ALT 29 U/L (9-52); AST 26 U/L (14-36); African American GFR (CKD) >90 (>60 ml/min/1.73 sqM); Albumin 3.9 g/dL (3.5-5.0); Alkaline Phosphatase 86 U/L (38-126); Anion Gap 14 mmol/L; Blood Urea Nitrogen 12 mg/dL (7-17); Calcium 9.8 mg/dL (8.4-10.2); Carbon Dioxide 18 mmol/L (22-30); Chloride 110 mmol/L (98-107); Glucose 158 mg/dL (74-99); Potassium 3.6 mmol/L (3.5-5.1); Sodium 142 mmol/L (137-145); Total Bilirubin 1.3 mg/dL (0.2-1.3); Total Protein 7.9 g/dL (6.3-8.2)
[2019-08-24 15:54] LABS: Anisocytosis Slight; Basophils # (A) 0.1 k/uL (0-0.2); Basophils % (A) 0 %; Eosinophils # (A) 0.1 k/uL (0-0.7); Eosinophils % (A) 0 %; HGB 12.6 gm/dL (11.4-16.0); Lymphocytes # (A) 0.5 k/uL (1.0-4.8); Lymphocytes % (A) 2 %; MCH 29.6 pg (25.0-35.0); MCHC 31.6 g/dL (31.0-37.0); MCV 93.7 fL (80.0-100.0); Monocytes # (A) 1.4 k/uL (0-1.0); Monocytes % (A) 4 %; Neutrophils # (A) 29.2 k/uL (1.3-7.7); Neutrophils % (A) 92 %; Platelet Count 300 k/uL (150-450); RBC 4.27 m/uL (3.80-5.40); WBC 31.8 k/uL (3.8-10.6)
[2019-08-24 16:03] LABS: Prothrombin Time 10.8 sec (9.0-12.0)
[2019-08-24 16:05] LABS: Partial Thromboplastin Time 21.9 sec (22.0-30.0)
[2019-08-24] MEDS ORDERED: SODIUM CHLORIDE 0.9% 500 ML 500 ML IV ONE (16:23)
[2019-08-24] MEDS ORDERED: IBUPROFEN 600 MG TAB PO STA (17:42)
[2019-08-24 18:15] VITALS: BP 114/75; PULSE 140; TEMP 99.5
--- NOTE | 2019-08-24 18:40 | CT ---
EXAMINATION TYPE: CT abdomen pelvis w con DATE OF EXAM: 08/24/2019 COMPARISON: None HISTORY: right side low abdominal surgical incision infection CT DLP: 2559.4 mGycm Automated exposure control for dose reduction was used. TECHNIQUE: Helical acquisition of images was performed from the lung bases through the pelvis. CONTRAST: Performed without Oral Contrast and with IV Contrast, patient injected with 100 mL of Isovu e 300. FINDINGS: A catheter enters in the right anterior abdominal cavity and then courses leftward, across the midline, to have its tip anteriorly within the left abdomen, at a level just superior to the supe rior iliac crest. ANTERIOR SUBCUTANEOUS ADIPOSE COMPARTMENT: Caudal to the level the umbilicus there is cutaneous thick ening with reticular pattern of edematous change throughout the subcutaneous adipose compartment and extending from the skin surface to the anterior abdominal wall. Within the medial subcutaneous area o f this edematous change are scattered gas bubbles which collectively measure approximately 6 cm mean diameter. There is no focal fluid collection to suggest drainable abscess. The underlying anterior ab dominal wall musculature appears intact. LUNG BASES: No significant abnormality is appreciated. LIVER/GB: No significant abnormality is appreciated. PANCREAS: No significant abnormality is seen. SPLEEN: No significant abnormality is seen. ADRENALS: No significant abnormality is seen. KIDNEYS: No significant abnormality is seen. FREE AIR: No free air is visualized. RETROPERITONEAL ADENOPATHY: None visualized REPRODUCTIVE ORGANS: No significant abnormality is seen URINARY BLADDER: No significant abnormality is seen. PELVIC ADENOPATHY: None visualized. OSSEOUS STRUCTURES: No significant abnormality is seen. BOWEL: No significant abnormality is seen. OTHER: No acute vascular findings. IMPRESSION: SUBCUTANEOUS FINDINGS DISCUSSED.
[2019-08-24] MEDS ORDERED: CLINDAMYCIN 900 MG in DEXTROSE 5% IN WATER 50 ML IVPB STA ×2 (18:46)
--- NOTE | 2019-08-24 19:07 | XR ---
EXAMINATION: XR chest 2V DATE AND TIME: 08/24/2019 5:39 PM CLINICAL INDICATION: Tachycardia; Fever TECHNIQUE: Departmental protocol COMPARISON: 06/08/2019 FINDINGS: Overlying soft tissues are prominent, limiting accuracy of radiography. The lungs appear to be clear, as seen. The hemidiaphragms are elevated on the frontal view, consisten t with relatively low lung inflation at the moment of x-ray exposure. The pleural spaces are negative. The cardiac silhouette appears borderline enlarged. The skeletal structures and soft tissues are negative for acute findings. IMPRESSION: LIMITED EXAMINATION, BUT NO DEFINITE ACUTE RADIOGRAPHIC PROCESS.
[2019-08-25] MEDS ORDERED: VANCOMYCIN 1,750 MG in SODIUM CHLORIDE 0.9% 500 ML 500 ML IVPB SCH (06:00)
== END 2019-08-24 20:29 ==
LOC: EC 14:15
DX: T81.44XA Sepsis following a procedure, initial encounter (principal); R65.20 Severe sepsis without septic shock; N39.0 Urinary tract infection, site not specified; L03.311 Cellulitis of abdominal wall; D72.829 Elevated white blood cell count, unspecified; G47.30 Sleep apnea, unspecified; Q05.9 Spina bifida, unspecified; F32.9 Major depressive disorder, single episode, unspecified; Z79.899 Other long term (current) drug therapy; Z88.1 Allergy status to other antibiotic agents; Z91.040 Latex allergy status; Z91.048 Other nonmedicinal substance allergy status; Z88.8 Allergy status to other drugs, medicaments and biological substances; Z99.89 Dependence on other enabling machines and devices; Z98.2 Presence of cerebrospinal fluid drainage device
CPT/HCPCS: 36415; 93005; 80053; 83605; 85025; 85610; 85730; 81001; 87040; 87502; 71046; 74177; 99285; 96365; 96366 ×2; 96367; J3370; J1956; Q9967

== ENCOUNTER → 2025-03-10 | Outpatient (CLI) | payer MEDICARE, OTHER | END | disposition home or self-care (01) | LOC: LABPAT 15:16 | PROVIDERS: ATTEND Urology | DX: Z01.818 Encounter for other preprocedural examination (principal) | CPT/HCPCS: 87086 ==